=== PATIENT | female | born 2005 | race Caucasian/White ===

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

== ENCOUNTER 2023-01-20 18:31 | Emergency (ER) | payer OTHER ==
[2023-01-20 18:54] VITALS: TEMP 97.8; BMI 29.2
[2023-01-20] MEDS ORDERED: ACETAMINOPHEN 500 MG TABLET (FP) PO ONE (19:31)
[2023-01-20 19:38] LABS: EPI CELLS 14 /uL (0-25.1); HYALINE CASTS 0 /uL (0-3.1); PH,URINE 5.5 (5.0-8.0); URINE APPEARANCE CLEAR; URINE BACTERIA 146 /uL (0-1359); URINE BILIRUBIN NEGATIVE (NEGATIVE); URINE COLOR YELLOW; URINE GLUCOSE (UA) NEGATIVE (NEGATIVE); URINE KETONE NEGATIVE (NEGATIVE); URINE LEUK ESTERASE TRACE (NEGATIVE); URINE NITRITE NEGATIVE (NEGATIVE); URINE PROTEIN NEGATIVE (NEGATIVE); URINE RBC 10 /uL (0-23.9); URINE UROBILINOGEN 0.2 mg/dL (0.2-1.0); URINE WBC 22 /uL (0-25.8)
[2023-01-20] MEDS ORDERED: ACETAMINOPHEN 325 MG TABLET (FP) ONE (19:41)
[2023-01-20 20:26] LABS: HCG,QUALITATIVE URINE Negative
[2023-01-20] MEDS ORDERED: KETOROLAC TROMETHAMINE 30 MG/1 ML VIAL IM ONE (20:32)
[2023-01-20] MEDS ORDERED: KETOROLAC TROMETHAMINE 30 MG/1 ML VIAL ONE (20:33)
[2023-01-20 22:00] VITALS: BP 106/65; PULSE 86; RESP 17
== END 2023-01-20 22:46 | disposition home or self-care (01) ==
LOC: JER 18:31
PROC: 3E0233Z Introduction of Anti-inflammatory into Muscle, Percutaneous Approach (ICD-10-PCS; principal; 2023-01-20)
DX: R51.9 Headache, unspecified (principal); R11.0 Nausea; V89.2XXA Person injured in unspecified motor-vehicle accident, traffic, initial encounter
CPT/HCPCS: 72125-TC; 72170-TC-FY; 73562-TC-RT-FY; 81003; 84703; 87086; 99285-25

== ENCOUNTER 2023-01-21 15:44 | Emergency (ER) | payer OTHER ==
[2023-01-21 16:01] VITALS: BP 102/68; PULSE 82; RESP 20; TEMP 97.9; BMI 21.2
[2023-01-21] MEDS ORDERED: LIDOCAINE 5% TOPICAL PATCH TP ONE ×2 (16:33)
[2023-01-21] MEDS ORDERED: ACETAMINOPHEN 500 MG TABLET (FP) PO ONE (16:34)
[2023-01-21] MEDS ORDERED: IBUPROFEN 600 MG TABLET (FP) PO ONE ×2 (16:34→16:41)
[2023-01-21] MEDS ORDERED: LIDOCAINE 4% PATCH TP ONE (16:41)
[2023-01-21] MEDS ORDERED: METHOCARBAMOL 500 MG TABLET PO ONE (16:42)
[2023-01-21] MEDS ORDERED: ACETAMINOPHEN 500 MG TABLET (FP) ONE (16:42)
[2023-01-21] MEDS ORDERED: METHOCARBAMOL 500 MG TABLET ONE (16:47)
[2023-01-21] MEDS ORDERED: LIDOCAINE PATCH REMOVAL MC ONE ×2 (22:00)
== END 2023-01-21 16:59 | disposition home or self-care (01) ==
LOC: JERFT 15:44
DX: M54.9 Dorsalgia, unspecified (principal); M54.2 Cervicalgia
CPT/HCPCS: 99283-25

== ENCOUNTER 2024-10-21 18:45 | Emergency (ER) | payer OTHER ==
[2024-10-21 18:54] VITALS: BP 115/64; PULSE 91; RESP 18; TEMP 97.8; BMI 23.8
[2024-10-21 19:56] LABS: ABSOLUTE IMMATURE GRANULOCYTES 0.03 x10^3/uL (0.0-0.031); BASOPHILS # 0.04 x10^3/uL (0.01-0.08); EOSINOPHIL % 0.9 % (0.7-5.8); EOSINOPHILS # 0.11 x10^3/uL (0.04-0.36); MCHC 32.4 g/dl (32.2-35.5); MEAN CELL VOLUME 95.8 fl (79.4-94.8); MEAN PLT VOLUME 9.6 fl (9.4-12.3); MONOCYTE # 0.98 x10^3/uL (0.24-0.86); MONOCYTE % 7.7 % (4.7-12.5); RDW 12.7 % (12.0-16.2)
[2024-10-21 19:57] LABS: URINE APPEARANCE CLEAR; URINE BILIRUBIN NEGATIVE (NEGATIVE); URINE COLOR YELLOW; URINE GLUCOSE (UA) NEGATIVE (NEGATIVE); URINE KETONE NEGATIVE (NEGATIVE); URINE LEUK ESTERASE NEGATIVE (NEGATIVE); URINE NITRITE NEGATIVE (NEGATIVE); URINE PROTEIN NEGATIVE (NEGATIVE); URINE UROBILINOGEN 0.2 mg/dL (0.2-1.0)
[2024-10-21 20:03] LABS: INR 1.04 (0.83-1.09); PROTHROMBIN TIME (PATIENT) 11.4 SEC (9.7-13.0)
[2024-10-21 20:28] LABS: GLUCOSE,RANDOM 88.0 mg/dL (74-106); TOT PROT 8.0 g/dl (6.4-8.2)
[2024-10-21 20:31] LABS: ALK PHOS 68.0 U/L (40-150)
[2024-10-21 20:34] LABS: CREATININE 0.66 mg/dL (0.55-1.3); SGOT/AST 23.0 U/L (5-34); SGPT/ALT 13.0 U/L (0-55)
[2024-10-21] MEDS ORDERED: ACETAMINOPHEN INJECTION 100 ML ONE (20:37)
[2024-10-21 20:40] LABS: CO2 24.0 mmol/L (21-32)
[2024-10-21] MEDS: ACETAMINOPHEN 1000 MG/100 ML BAG IVPB ONE (20:40)
[2024-10-21 20:55] LABS: HCV DIAGNOSTIC IN-HOUSE W/RFLX NON-REACTIVE (NONREACTIVE); HIV INTERPRETATION NEGATIVE (NEGATIVE)
[2024-10-21] MEDS ORDERED: KETOROLAC TROMETHAMINE 15 MG/ML VIAL ONE (22:10)
[2024-10-21] MEDS: KETOROLAC TROMETHAMINE 15 MG/ML VIAL IVPUSH ONE (22:21)
== END 2024-10-21 22:22 | disposition home or self-care (01) ==
LOC: JER 18:45
PROC: 3E033NZ Introduction of Analgesics, Hypnotics, Sedatives into Peripheral Vein, Percutaneous Approach (ICD-10-PCS; principal; 2024-10-21)
PROC: 3E0333Z Introduction of Anti-inflammatory into Peripheral Vein, Percutaneous Approach (ICD-10-PCS; 2024-10-21)
DX: N83.201 Unspecified ovarian cyst, right side (principal); R10.2 Pelvic and perineal pain; R11.0 Nausea
CPT/HCPCS: 36415; 74177-TC; 76830-TC; 80053; 81003; 83690; 84703; 85025; 85610; 86803; 87086; 87389; 99285-25; Q9967